=== PATIENT | male | born 1955 | race Caucasian/White ===

== ENCOUNTER 2020-11-21 07:00 | Emergency (ER) | payer BC, SELFPAY ==
[2020-11-21 07:13] VITALS: BP 187/92; PULSE 111; RESP 18; TEMP 37; O2SAT 98
--- NOTE | 2020-11-21 08:13 | ED_ITS ---
HPI - General Adult General Chief complaint: Skin/Abscess/Foreign Body Stated complaint: something stuck in throat Time Seen by Provider: 11/21/20 08:00 Source: patient Mode of arrival: ambulatory Limitations: no limitations History of Present Illness HPI narrative: 65 y/o male with history of CKD (not on HD) who presents to the ER with slight foreign body sensation after he was eating apple pie yesterday. He reports feeling like a piece of the pie is still stuck in his throat. He was able to eat meat loaf dinner last night and have some soup as well. He woke up this morning with intermittent feeling of a small piece of pie still stuck in his throat. He is not short of breath. He is not having any difficulty eating or drinking. His son reports his voice sounds slightly harsh. Patient reports the sensation comes and goes and is not constant. MD complaint: FB in esophagu\s Onset (ago): day(s) Location: neck Radiation: non-radiation Severity: mild Severity scale (1-10): 4 Quality: aching Pain Consistency: intermittent Relieving factors: none Exacerbating factors: none Associated symptoms: denies other symptoms Treatments prior to arrival: none Related Data Allergies Allergy/AdvReac Type Severity Reaction Status Date / Time demeclocycline Allergy Mild RASH Verified 11/21/20 07:12 [From DECLOMYCIN] Review of Systems Review of Systems: Constitutional: No Fever, No Chills ENT/Mouth: No sore throat, No Rhinorrhea, No Swallowing Difficulty, +FB densation Cardiovascular: No Chest Pain, No SOB Respiratory: No Cough, No Sputum, No Wheezing, No dyspnea Gastrointestinal: No Nausea, No Vomiting Skin: No Skin Lesions, No rash Neuro: No Weakness, No Numbness, No Dizziness, No Headache Psych: + Anxiety/Panic, No Depression Heme/Lymph: No Lymphadenopathy PMFSH Past Medical History Medical History (Updated 11/21/20 @ 08:19 by LEEANN Bell) Chronic kidney disease Social History Social History Patient Tobacco Use Status: Former Tobacco user Use of substances other than those prescribed or required for medical reasons: No Advance Directives: No Physical Exam Vital Signs: Vital Signs: Last Vital Signs Temp 98.6 F 11/21/20 07:13 Pulse 96 11/21/20 08:15 Resp 18 11/21/20 08:15 BP 154/87 H 11/21/20 08:15 Pulse Ox 99 11/21/20 08:15 Body Mass Index 20.0 Appearance: Alert. Oriented X3. No acute distress. Eyes: Pupils equal, round and reactive to light. ENT: Pharynx normal. Uvula midline. Neck: Normal inspection. Neck supple. No LAD. No anterior swelling or tenderness. CVS: Normal heart rate and rhythm. Pulses normal. Respiratory: No respiratory distress. Breath sounds normal. Normal voice, handl ing secretions normally. Abdomen: Soft and nontender. +BS x4 Skin: Skin warm and dry. Normal skin color. Normal skin turgor. No rashes. Extremities: No lower extremity edema. Neuro: Oriented X 3. Nonfocal. Course Course Course Narrative: 65-year-old male presenting to the ER for evaluation of foreign body sensation in his esophagus. He is able to tolerate both solids and liquids. He drank water in the ER and had Liang crackers. No respiratory distress. Given his ability to tolerate p.o. there is no acute intervention at this time. X-ray would be of little utility, no need for CT scan. 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 Patient agrees with plan and is stable for discharge home. Critical Care Time Critical Care Time Critical Care Time: No Discharge Plan Discharge Clinical Impression: Sensation of foreign body in esophagus Patient Disposition: Home, Self-Care Instructions: Upper Endoscopy (DC) Additional Instructions: It is reassuring that you can eat and drink - this means your esophagus is patent Recommend following up with your GI doctor if this sensation persists for possible endoscopy If you develop inability to eat or drink, develop vomiting, blood in your vomiting or chest pain come back to the ER for further evaluation. Referrals: Alysia Lloyd MD [Physician] - 2 days (esophagus FB sensation) Interventions: ED Discharge Assessment Last Done: 11/21/20 08:41 Discharge Date/Time: 11/21/20 08:43
[2020-11-21 08:15] VITALS: BP 154/87; PULSE 96; RESP 18; O2SAT 99
--- NOTE | 2020-11-21 08:20 | PC.NURSE ---
pt alert and oriented, skin pwd, respirations even and unlabored, speaking in full clear sentences but states that his throat feels irritated/horse/like a frog is stuck in there after eat an apple pie yesterday
== END 2020-11-21 08:43 | disposition home or self-care (01) ==
PROVIDERS: Emergency Provider Emergency Medicine; PCP Internal Medicine
DX: R09.89 Other specified symptoms and signs involving the circulatory and respiratory systems (principal); Z87.891 Personal history of nicotine dependence; Z79.899 Other long term (current) drug therapy
CPT/HCPCS: 99283; 99284

== ENCOUNTER 2021-04-18 02:47 | Emergency (ER) | payer BC, SELFPAY ==
--- NOTE | ~2021-04-18 | XR_ITS ---
EXAMINATION: XR CHEST CLINICAL INFORMATION: Shortness of breath COMPARISON: 09/05/2018 TECHNIQUE: Frontal view of the chest was obtained. FINDINGS: The lungs are clear with no focal consolidation. No evidence of pneumothorax, pulmonary edema, or pleural effusions. The cardiomediastinal silhouette is unremarkable. No acute osseous findings. XR/XR chest 1V IMPRESSION: No acute cardiopulmonary findings.
[2021-04-18 02:57] VITALS: BP 130/72; PULSE 90; BMI 26.6
[2021-04-18 03:00] VITALS: BP 127/75; PULSE 75; RESP 18; TEMP 36.9; O2SAT 99
--- NOTE | 2021-04-18 03:02 | ED.SOB ---
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 was negative complaining and cannot sleep in the night feels short of breath when EMS reached home was saturating 95% at room air patient keep adding on his complaints complains of weakness no fever no chills no new complaints no nausea no vomiting no diarrhea Related Data Previous Rx's Medication Instructions Recorded lorazepam 0.5 mg tablet (Ativan) 0.5 mg PO BEDTIME PRN #10 tab 04/18/21 Allergies Allergy/AdvReac Type Severity Reaction Status Date / Time demeclocycline Allergy Mild RASH Verified 11/21/20 07:12 [From DECLOMYCIN] Review of Systems Review of Systems: Yes all other systems are reviewed and are negative PMFSH Past Medical History Medical History Chronic kidney disease Social History Social History Alcohol intake: never Patient Tobacco Use Status: Former Tobacco user Use of substances other than those prescribed or required for medical reasons: No Advance Directives: No Physical Exam Vital Signs: Vital Signs: BMI result Body Mass Index 26.6 Appearance: Alert. Oriented X3. No acute distress. Thin emaciated Eyes: No pallor ENT: Pharynx normal. Oral Mucosa moist Neck: Normal inspection. Neck supple. CVS: Normal heart rate and rhythm. Pulses normal. Respiratory: No respiratory distress. Equal air entry bilateral, no wheezing/rales/rhonchi Abdomen: Soft and nontender. Bowel sounds are present, no mass palpable, no CVA tenderness Skin: Skin warm and dry. Normal skin color. Normal skin turgor. Extremities: No lower extremity edema. No calf tenderness Neuro: Oriented X 3. No motor deficit. MDM - SOB/Dyspnea MDM Narrative Medical decision making narrative: Patient with anxiety multiple complaints chest x-ray negative cardiac enzymes negative BNP also negative saturating 98% at room air in the ER will discharge patient home on Ativan Lab Data Attestation: I reviewed the patient's lab results. Result diagrams: 04/18/21 03:55 04/18/21 03:55 Labs: Lab Results 04/18/21 04/18/21 04/18/21 Range/Units 03:55 03:55 03:55 WBC 6.7 (4.8-10.8) X10*3/uL RBC 4.37 L (4.60-5.80) X10*6/uL Hgb 14.3 (14.0-18.0) g/dl Hct 40.9 L (42.0-52.0) % MCV 93.6 (80.0-98.0) fL MCH 32.7 (27.0-33.0) pg MCHC 35.0 (31.0-36.0) g/dl RDW 11.8 (11.0-16.0) % Plt Count 199 (160-400) X10*3/uL MPV 10.0 (9.4-12.4) fL Immature Gran % (Auto) 0.3 (0.0-0.4) % Neut % (Auto) 75.4 H (45-73) % Lymph % (Auto) 12.2 L (20-40) % [place] % (Auto) 10.8 (2-11) % Eos % (Auto) 1.0 (0-4) % Baso % (Auto) 0.3 (0-2) % Lymph # (Auto) 0.8 L (1.2-4.9) X10*3/uL [place] # (Auto) 0.7 (0.1-1.2) X10*3/uL Eos # (Auto) 0.1 (0.0-0.4) X10*3/uL Baso # (Auto) 0.0 (0.0-0.2) X10*3/uL Abs Immat Gran (auto) 0.02 (0.00-0.03) X10*3/uL Absolute Neuts (auto) 5.1 (2.0-8.3) x10*3/uL Absolute Nucleated RBC 0.000 (0.0-0.012) X10*3/uL Nucleated RBC % (auto) 0.0 (0.0-0.2) /100WBC Sodium 136 (135-145) mmol/L Potassium 4.5 (3.3-5.1) mmol/L Chloride 96 (96-108) mmol/L Carbon Dioxide 33 H (22-29) mmol/L Anion Gap 12 (12-20) BUN 34 H (9-16) mg/dL Creatinine 1.63 H (0.5-1.4) mg/dL Estim Creat Clear Calc 44.8 Estimated GFR 43 Random Glucose 100 (60-115) mg/dL Calcium 10.6 H (8.4-10.2) mg/dL Total Bilirubin 0.9 (0.0-1.0) mg/dL AST 15 (5-37) U/L ALT 13 (0-40) U/L Alkaline Phosphatase 63 (39-117) U/L Troponin I High Sens (<3.5-35.0) ng/L B-Natriuretic Peptide (<100) pg/mL Total Protein 6.3 L (6.5-8.0) g/dL Albumin 4.0 (3.5-5.0) g/dL COVID-19 (CA) Negative (Negative) COVID-19 Clin Com See Note 04/18/21 Range/Units 03:55 WBC (4.8-10.8) X10*3/uL RBC (4.60-5.80) X10*6/uL Hgb (14.0-18.0) g/dl Hct (42.0-52.0) % MCV (80.0-98.0) fL MCH (27.0-33.0) pg MCHC (31.0-36.0) g/dl RDW (11.0-16.0) % Plt Count (160-400) X10*3/uL MPV (9.4-12.4) fL Immature Gran % (Auto) (0.0-0.4) % Neut % (Auto) (45-73) % Lymph % (Auto) (20-40) % [place] % (Auto) (2-11) % Eos % (Auto) (0-4) % Baso % (Auto) (0-2) % Lymph # (Auto) (1.2-4.9) X10*3/uL [place] # (Auto) (0.1-1.2) X10*3/uL Eos # (Auto) (0.0-0.4) X10*3/uL Baso # (Auto) (0.0-0.2) X10*3/uL Abs Immat Gran (auto) (0.00-0.03) X10*3/uL Absolute Neuts (auto) (2.0-8.3) x10*3/uL Absolute Nucleated RBC (0.0-0.012) X10*3/uL Nucleated RBC % (auto) (0.0-0.2) /100WBC Sodium (135-145) mmol/L Potassium (3.3-5.1) mmol/L Chloride (96-108) mmol/L Carbon Dioxide (22-29) mmol/L Anion Gap (12-20) BUN (9-16) mg/dL Creatinine (0.5-1.4) mg/dL Estim Creat Clear Calc Estimated GFR Random Glucose (60-115) mg/dL Calcium (8.4-10.2) mg/dL Total Bilirubin (0.0-1.0) mg/dL AST (5-37) U/L ALT (0-40) U/L Alkaline Phosphatase (39-117) U/L Troponin I High Sens < 3.5 (<3.5-35.0) ng/L B-Natriuretic Peptide < 10 (<100) pg/mL Total Protein (6.5-8.0) g/dL Albumin (3.5-5.0) g/dL COVID-19 (CA) (Negative) COVID-19 Clin Com ECG Data Attestation: I personally reviewed and interpreted this ECG as follows: Interpretation: Heart rate 74 beats per minute normal sinus rhythm normal intervals normal axis no acute STT wave changes Discharge Plan Discharge Clinical Impression: Anxiety Patient Disposition: Home, Self-Care Instructions: Generalized Anxiety Disorder (ED) Additional Instructions: Follow with PCP Anxiety medicine as advised Prescriptions: New lorazepam [Ativan] 0.5 mg tablet 0.5 mg PO BEDTIME PRN (Reason: anxiety) Qty: 10 0RF
--- NOTE | 2021-04-18 03:39 | ECG_ITS ---
Test Reason : SOB Blood Pressure : / mmHG Vent. Rate : 074 BPM Atrial Rate : 074 BPM P-R Int : 140 ms QRS Dur : 086 ms QT Int : 372 ms P-R-T Axes : 076 059 066 degrees QTc Int : 412 ms Normal sinus rhythm Normal ECG When compared with ECG of 05-SEP-2018 20:49, No significant change was found Referred By: Kevin Pedersen Electronically Signed By:Lui Houston
[2021-04-18 04:01] LABS: Basophils Percent Auto 0.3 % (0-2); Eosinophils Absolute Auto 0.1 X10*3/uL (0.0-0.4); Hematocrit 40.9 % (42.0-52.0); Hemoglobin 14.3 g/dl (14.0-18.0); Imm Gran Abs Auto 0.02 X10*3/uL (0.00-0.03); Imm Gran Pct Auto 0.3 % (0.0-0.4); Lymphocytes Absolute Auto 0.8 X10*3/uL (1.2-4.9); Lymphocytes Percent Auto 12.2 % (20-40); MANUAL DIFF FLAG NO; Mean Corpuscular Hemoglobin 32.7 pg (27.0-33.0); Mean Corpuscular Volume 93.6 fL (80.0-98.0); Monocytes Absolute Auto 0.7 X10*3/uL (0.1-1.2); Monocytes Percent Auto 10.8 % (2-11); Neutrophils Absolute Auto 5.1 x10*3/uL (2.0-8.3); Neutrophils Percent Auto 75.4 % (45-73); Platelet Count 199 X10*3/uL (160-400); Red Blood Count 4.37 X10*6/uL (4.60-5.80); Red Cell Distribution Width 11.8 % (11.0-16.0); White Blood Count 6.7 X10*3/uL (4.8-10.8)
[2021-04-18] MEDS: 0.9 % Sodium Chloride 1,000 ML 999 ML IV (04:08)
[2021-04-18 04:17] LABS: COVID-19 Test Negative (Negative)
[2021-04-18 04:20] LABS: B Type Natriuretic Peptide < 10 pg/mL (<100); Troponin-I High Sensitivity < 3.5 ng/L (<3.5-35.0)
[2021-04-18 04:23] LABS: Alanine Aminotransferase 13 U/L (0-40); Alkaline Phosphatase 63 U/L (39-117); Anion Gap 12 (12-20); Aspartate Amino Transferase 15 U/L (5-37); Bilirubin Total 0.9 mg/dL (0.0-1.0); Blood Urea Nitrogen 34 mg/dL (9-16); Calcium 10.6 mg/dL (8.4-10.2); Carbon Dioxide 33 mmol/L (22-29); Chloride 96 mmol/L (96-108); Creatinine Clr Calc Pharmacy 44.8; Estimated Glomerular Filt Rate 43; Glucose Random 100 mg/dL (60-115); Potassium 4.5 mmol/L (3.3-5.1); Sodium 136 mmol/L (135-145); Total Protein 6.3 g/dL (6.5-8.0)
[2021-04-18 05:19] VITALS: BP 130/84; PULSE 78; RESP 18; O2SAT 98
== END 2021-04-18 05:55 | disposition home or self-care (01) ==
PROVIDERS: Emergency Provider Internal Medicine; PCP Internal Medicine
DX: F41.9 Anxiety disorder, unspecified (principal); R53.1 Weakness; R06.02 Shortness of breath; Z20.822 Contact with and (suspected) exposure to COVID-19
CPT/HCPCS: 36415; 71045; 80053; 83880; 84484; 85025; 87635; 93005; 96360; 99284; 99285

== ENCOUNTER 2021-08-19 06:10 | Emergency (ER) | payer BC, SELFPAY ==
--- NOTE | ~2021-08-19 | CT_ITS ---
EXAMINATION: CT CHEST, ABDOMEN AND PELVIS WITHOUT CONTRAST CLINICAL INFORMATION: Left lower quadrant pain with constipation and weight loss COMPARISON: No pertinent prior studies are available for comparison. TECHNIQUE: Multidetector volumetric imaging was performed from the thoracic inlet through the pubic symphysis. Sagittal and coronal reformatted images were obtained on the technologist workstation. This CT examination was performed using dose optimization techniques as appropriate, variously including the following: *Automated exposure control *Adjustment of mA and/or kV according to patient size (this includes techniques or standardized protocols for targeted exams where dose is matched to indication/reason for exam; i.e. extremities or head) *Use of iterative reconstruction technique DLP: 371 mGy-cm. FINDINGS: There is a lack of intra-abdominal fat and without IV contrast and oral contrast it is difficult to differentiate structures within the abdomen and pelvis. CHEST: Lungs: Central airways are patent. No bronchial wall thickening is seen. No bronchiectasis is noted. No confluent parenchymal disease is seen. There are a few sub-4 mm densities present. No suspicious lung masses appreciated. Mediastinum: Thyroid gland appears unremarkable. Heart normal size. Coronary artery calcification is seen. No pericardial effusion. No thoracic aortic aneurysm. No mediastinal or hilar lymphadenopathy appreciated. Pleura: There is no significant effusion. No pleural mass or thickening. Chest Wall/Axilla: Unremarkable. ABDOMEN/PELVIS: Liver, Gallbladder, Biliary Tree: The liver is normal in size, shape, and attenuation. No focal hepatic lesion or biliary ductal dilatation is present. The gallbladder is unremarkable with no evidence of radiopaque gallstones, gallbladder wall thickening, or pericholecystic inflammatory changes. Pancreas: Unremarkable. Spleen: Unremarkable. Adrenal Glands: Unremarkable. Kidneys and Ureters: Right kidney: The right kidney has a lobular contour. Numerous small 2 to 3 mm nonobstructing calculi are present. There is an extrarenal pelvis. The entire length of the distal ureter cannot be followed but no definite calculi are seen in the expected location of the ureter. There is prominence of the proximal ureter. Left kidney: The left kidney is atrophic. Extrarenal pelvis identified. Numerous nonobstructing calculi are seen within the kidney. Distal ureter obscured. Bladder: Unremarkable. Gastrointestinal Tract: No pathologically loops of large or small bowel are evident. There is a large stool burden seen throughout the colon. No colonic wall thickening is identified. There is difficult differentiating structures from and bowel loops due to lack of intra-abdominal fat. No free air is identified. Multiple loops of large and small bowel about the pelvis are present making evaluation difficult especially for free fluid and bowel wall thickening. There appears to be a minimal amount of free fluid within the pelvis. The appendix is not identified. Possible rectal mass is not excluded. Abdominal Wall: No hernia is demonstrated. Lymph Nodes: No definite lymphadenopathy is appreciated. Vascular: No abdominal aortic aneurysm. There is ectasia at the origin of the celiac artery measuring 1.5 cm in diameter. This may be related to a common trunk of the celiac and superior mesenteric arteries. Pelvic Viscera: No definite abnormal mass identified. Osseous Structures: No suspicious destructive bony lesions identified. Degenerative disc disease is seen L4-S1. CT/CT abdomen pelvis wo con IMPRESSION: No significant abnormality in the chest identified. Bilateral nephrolithiasis with atrophic left kidney. No definite hydronephrosis identified. Difficulty in evaluation due to lack of intra-abdominal fat and contrast. There is a large stool burden present. Rectal mass is not excluded and digital examination would help in evaluation of this. No definite free air identified. Minimal pelvic free fluid. Lack of intra-abdominal fat.
[2021-08-19 06:13] VITALS: BP 115/68; PULSE 83; RESP 17; TEMP 36.6; O2SAT 98; BMI 16.8
[2021-08-19 06:33] LABS: MANUAL DIFF FLAG NO
[2021-08-19 06:35] LABS: Basophils Percent Auto 0.5 % (0-2); Eosinophils Absolute Auto 0.1 X10*3/uL (0.0-0.4); Eosinophils Percent Auto 2.2 % (0-4); Hematocrit 34.5 % (42.0-52.0); Hemoglobin 11.8 g/dl (14.0-18.0); Imm Gran Abs Auto 0.01 X10*3/uL (0.00-0.03); Imm Gran Pct Auto 0.3 % (0.0-0.4); Lymphocytes Absolute Auto 0.8 X10*3/uL (1.2-4.9); Lymphocytes Percent Auto 21.3 % (20-40); Mean Corpuscular HGB Conc 34.2 g/dl (31.0-36.0); Mean Corpuscular Hemoglobin 32.9 pg (27.0-33.0); Mean Corpuscular Volume 96.1 fL (80.0-98.0); Mean Platelet Volume 10.1 fL (9.4-12.4); Monocytes Absolute Auto 0.3 X10*3/uL (0.1-1.2); Monocytes Percent Auto 7.9 % (2-11); Neutrophils Absolute Auto 2.5 x10*3/uL (2.0-8.3); Neutrophils Percent Auto 67.8 % (45-73); Platelet Count 180 X10*3/uL (160-400); Red Blood Count 3.59 X10*6/uL (4.60-5.80); Red Cell Distribution Width 12.2 % (11.0-16.0); White Blood Count 3.7 X10*3/uL (4.8-10.8)
[2021-08-19 06:54] LABS: Alanine Aminotransferase 10 U/L (0-40); Albumin Level 3.9 g/dL (3.5-5.0); Alkaline Phosphatase 48 U/L (39-117); Anion Gap 11 (12-20); Aspartate Amino Transferase 14 U/L (5-37); Bilirubin Total 0.8 mg/dL (0.0-1.0); Blood Urea Nitrogen 22 mg/dL (9-16); Calcium 9.7 mg/dL (8.4-10.2); Carbon Dioxide 27 mmol/L (22-29); Chloride 107 mmol/L (96-108); Estimated Glomerular Filt Rate 37; Glucose Random 118 mg/dL (60-115); Sodium 141 mmol/L (135-145); Total Protein 6.2 g/dL (6.5-8.0)
--- NOTE | 2021-08-19 07:01 | PC.NURSE ---
Report given to ALEX Ng
[2021-08-19 07:16] VITALS: BP 117/67; PULSE 66; RESP 16; TEMP 36.4; O2SAT 100
[2021-08-19 08:33] LABS: OBS Int Ctl Valid YES; OBS1 NEGATIVE (NEGATIVE)
[2021-08-19 09:51] VITALS: BP 122/73; PULSE 57; RESP 17; TEMP 36.6; O2SAT 99
--- NOTE | 2021-08-19 10:22 | ED.ABDPAIN ---
HPI - Abdominal Pain General Chief Complaint: Abdominal Pain Stated Complaint: Stomach issues Time Seen by Provider: 08/19/21 07:47 Source: patient Mode of arrival: ambulatory Limitations: no limitations History of Present Illness HPI narrative: 66-year-old male who presents emergency department for evaluation of no bowel movements x3 weeks, feeling bloated and having difficulty swallowing with a 40 lb weight loss. The patient states that he has been having difficulty swallowing since February of 2021. 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 He states that over the last 4 months he has lost 40 lb. He has been using protein drinks and ensure and is still lost weight. He states that he mainly has difficulty swallowing solids but can swallow liquids. The patient states that he is not moved his bowels and 3 weeks. He is also experiencing abdominal pain X3 weeks. He points to his umbilical area and describes the pain as a constant, pressure-like pain with an intermittent sharp component, the pain is 8/10 at its worst. He denied nausea or vomiting. He denied fever, chills, chest pain, shortness of breath. He has not noticed any blood per rectum or dark tarry stools. MD elicited complaint: abdominal pain Pertinent past history: constipation ( no BM in 3 weeks) Onset (ago): week(s) (3) Pain Consistency: constant Location: periumbilical Severity: severe Pain scale (0-10): 8 Quality: stabbing and other ( pressure) Radiation: none Migration to: no migration Exacerbating factors: eating Relieving factors: nothing Associated symptoms: constipation and other ( dysphagia to solids) Related Data Previous Rx's Medication Instructions Recorded lorazepam 0.5 mg tablet (Ativan) 0.5 mg PO BEDTIME PRN anxiety #10 04/18/21 tabs Allergies Allergy/AdvReac Type Severity Reaction Status Date / Time demeclocycline Allergy Mild RASH Verified 08/19/21 06:13 [From DECLOMYCIN] Review of Systems Review of Systems Yes all other systems are reviewed and are negative [facility] Past Medical History [facility] Narrative: past medical history none. Past surgical history: Patient states that when he was a child a had a bladder obstruction which required surgical intervention, he has an atrophied left kidney. He denies tobacco, alcohol and drug use. Medical History Chronic kidney disease Social History Social History Alcohol intake: unknown Patient Tobacco Use Status: Former Tobacco user Use of substances other than those prescribed or required for medical reasons: Unknown Advance Directives: No Advance Directives Information Provided: No Physical Exam ED Vital Signs: Vital Signs - 24 hr 08/19/21 06:13 08/19/21 07:16 08/19/21 09:51 Temperature 97.8 F 97.6 F 97.9 F Pulse Rate 83 66 57 Respiratory Rate 17 16 17 Blood Pressure 115/68 117/67 122/73 Pulse Oximetry 98 100 99 Oxygen Delivery Method Room Air Room Air Room Air BMI result Body Mass Index 16.8 Const Other: Awake, alert, male patient, he is very thin, he is pleasant and cooperative, answers all questions appropriately BMI 16.9 HENMT Head: Yes normal to inspection, Yes normocephalic and Yes atraumatic Ears: external ears normal General nose exam: Normal external nose present Face and sinus: Yes normal facial exam Mouth: Normal oral and palatal mucosa present Throat: Yes posterior oropharynx normal Eyes General: appearance normal, both eyes and all related structures Pupils: Equal, round and reactive pupils present Neck Neck: Yes normal visual inspection, Yes no lymphadenopathy, Yes trachea midline and Yes supple Chest Chest palpation & inspection: normal inspection of the chest and normal palpation of entire chest wall Resp Effort & Inspection: normal respiratory effort and able to speak in complete sentences Auscultation: clear to auscultation bilaterally Cardio Rate: regular rate Rhythm: regular rhythm Heart sounds: S1 normal heart sound present, S2 normal heart sound present and no murmurs GI Inspection: Yes normal to inspection Palpation (GI): Soft to palpation, Tenderness to palpation present (GI) in the LLQ ( [id number]) and periumbilically ( moderate) and no guarding Auscultation: normal bowel sounds Rectal Exam - Male: Yes normal sphincter tone, Yes Abnormal stool present ( hard small stool in the rectal vault, no mass noted on digital exam) and Yes heme negative stool General: Yes no CVA tenderness Back/Spine/Pelvis Back: no CVA tenderness Skin General skin exam: no rashes or lesions noted Neuro Cranial nerves: Yes CN's II-XII intact bilaterally and Yes Equal, round and reactive pupils present Cognition (Neuro): normal cognition Motor exam (neuro): 5/5 motor strength present throughout Extrem General: Yes normal to inspection Psych Appearance: grossly normal Speech and movement: Normal speech and movement present Affect: normal affect Attitude: cooperative Thought process: Normal thought process present Thought content: Normal thought content present Course Course Course Narrative: 66-year-old male who presents emergency department for evaluation of abdominal pain and no bowel movement x3 weeks. Patient has also been experiencing dysphagia to solids for 5-6 months with a 40 lb weight loss. The patient has had an evaluation by GI with an endoscopy, very swallow and colonoscopy without finding a clear cause for his symptoms. The the patient's constipation abdominal pain however is new with the last 3 weeks. Vital signs were normal. The patient is very thin this is consistent with his weight loss. He did have periumbilical and left lower quadrant tenderness. Rectal exam revealed a small amount of hard stool he did not appear to be impacted. The stool was Hemoccult negative. Laboratory evaluation including CBC, CMP was ordered. CT scan of the chest abdomen pelvis will also be obtained. Given his renal disease he cannot receive IV contrast. Laboratory evaluation revealed a normocytic anemia with an H&H of 11 and 34.5. Patient's white blood count was low at 3700. BUN was slightly elevated at 22 with a creatinine of 1.85. Patient's total protein was low at 6.2 which is consistent with his malnutrition. CT scan of the chest did not reveal any significant abnormalities. CT scan of the abdomen pelvis was limited due to the fact that he did not get IV contrast . Radiologist noted bilateral nephrolithiasis with atrophied left kidney in no hydronephrosis identified, no other findings to explain the patient's abdominal pain weight loss were noted. I did discuss these findings with the patient. The patient will be discharged home with a bowel regimen. He was advised to contact his gasoline plant operator to be re-evaluated for is continued dysphagia abdominal pain and weight loss. MDM - Abdominal Pain Medical Records Attestation: I reviewed the patient's medical records. Lab Data Attestation: I reviewed the patient's lab results. Result diagrams: 08/19/21 06:28 08/19/21 06:28 Labs: Lab Results 08/19/21 08/19/21 08/19/21 Range/Units 06:28 06:28 08:21 WBC 3.7 L (4.8-10.8) X10*3/uL RBC 3.59 L (4.60-5.80) X10*6/uL Hgb 11.8 L (14.0-18.0) g/dl Hct 34.5 L (42.0-52.0) % MCV 96.1 (80.0-98.0) fL MCH 32.9 (27.0-33.0) pg MCHC 34.2 (31.0-36.0) g/dl RDW 12.2 (11.0-16.0) % Plt Count 180 (160-400) X10*3/uL MPV 10.1 (9.4-12.4) fL Immature Gran % (Auto) 0.3 (0.0-0.4) % Neut % (Auto) 67.8 (45-73) % Lymph % (Auto) 21.3 (20-40) % [place] % (Auto) 7.9 (2-11) % Eos % (Auto) 2.2 (0-4) % Baso % (Auto) 0.5 (0-2) % Lymph # (Auto) 0.8 L (1.2-4.9) X10*3/uL [place] # (Auto) 0.3 (0.1-1.2) X10*3/uL Eos # (Auto) 0.1 (0.0-0.4) X10*3/uL Baso # (Auto) 0.0 (0.0-0.2) X10*3/uL Abs Immat Gran (auto) 0.01 (0.00-0.03) X10*3/uL Absolute Neuts (auto) 2.5 (2.0-8.3) x10*3/uL Absolute Nucleated RBC 0.000 (0.0-0.012) X10*3/uL Nucleated RBC % (auto) 0.0 (0.0-0.2) /100WBC Sodium 141 (135-145) mmol/L Potassium 4.0 (3.3-5.1) mmol/L Chloride 107 (96-108) mmol/L Carbon Dioxide 27 (22-29) mmol/L Anion Gap 11 L (12-20) BUN 22 H (9-16) mg/dL Creatinine 1.85 H (0.5-1.4) mg/dL Estim Creat Clear Calc 33.0 Estimated GFR 37 Random Glucose 118 H (60-115) mg/dL Calcium 9.7 D (8.4-10.2) mg/dL Total Bilirubin 0.8 (0.0-1.0) mg/dL AST 14 (5-37) U/L ALT 10 (0-40) U/L Alkaline Phosphatase 48 D (39-117) U/L Total Protein 6.2 L (6.5-8.0) g/dL Albumin 3.9 (3.5-5.0) g/dL Stool Occult Blood NEGATIVE (NEGATIVE) Discharge Plan Discharge Clinical Impression: Abnormal weight loss, Anemia Abdominal pain Qualifiers: Abdominal location: left lower quadrant Qualified Code(s): R10.32 - Left lower quadrant pain Constipation Qualifiers: Constipation type: unspecified constipation type Qualified Code(s): K59.00 - Constipation, unspecified Patient Disposition: Home, Self-Care Instructions: Constipation (ED) Prescriptions: No Action lorazepam [Ativan] 0.5 mg tablet 0.5 mg PO BEDTIME PRN (Reason: anxiety) Qty: 10 0RF
== END 2021-08-19 10:51 | disposition home or self-care (01) ==
PROVIDERS: Emergency Provider Emergency Medicine Emergency Medical Services; PCP Internal Medicine
DX: D64.9 Anemia, unspecified (principal); K59.00 Constipation, unspecified; M54.6 Pain in thoracic spine; R10.32 Left lower quadrant pain; R13.10 Dysphagia, unspecified; R63.4 Abnormal weight loss; Z79.899 Other long term (current) drug therapy
CPT/HCPCS: 36415; 71250; 74176; 80053; 82272; 85025; 99284